=== PATIENT | male | born 1980 | race Asian ===

== ENCOUNTER 2016-11-10 04:53 | Emergency (ER) | payer BC ==
[~2016-11-10] VITALS: Ht 157.5 cm; Wt 106.6 kg
[2016-11-10 05:26] LABS: PLATELET COUNT 261 K/uL (142-355)
[2016-11-10 05:35] LABS: POTASSIUM 3.4 mmol/L (3.6-5.2); SODIUM 133 mmol/L (136-145)
[2016-11-10 06:33] VITALS: BP 140/84; TEMP 97.6
== END 2016-11-10 06:34 | disposition home or self-care (01) ==
LOC: ED 04:53
PROVIDERS: Emergency Medicine
DX: R07.89 Other chest pain (principal); K29.70 Gastritis, unspecified, without bleeding; B96.81 Helicobacter pylori [H. pylori] as the cause of diseases classified elsewhere
CPT/HCPCS: 80053; 82550; 82553; 84484; 85027; 86318; 93005; 99284

== ENCOUNTER 2017-12-21 18:34 | Outpatient (CLI) | payer BC | END 2017-12-21 18:48 | disposition short-term general hospital (02) | LOC: AMB 18:34 | DX: R55 Syncope and collapse (principal); R06.02 Shortness of breath | CPT/HCPCS: A0425; A0429 ==

== ENCOUNTER 2017-12-21 18:52 | Emergency (ER) | payer BC ==
[~2017-12-21] VITALS: Ht 190.5 cm; Wt 102.1 kg
[2017-12-21 19:57] LABS: PLATELET COUNT 508 K/uL (142-355)
[2017-12-21 20:01] LABS: POTASSIUM 3.7 mmol/L (3.6-5.2)
[2017-12-21 22:43] VITALS: BP 142/73; TEMP 98.8
== END 2017-12-21 22:45 | disposition home or self-care (01) ==
LOC: ED 18:52
PROVIDERS: Specialist
DX: R55 Syncope and collapse (principal); E86.9 Volume depletion, unspecified
CPT/HCPCS: 36415; 80053; 85027; 85379; 99283; Q9963

== ENCOUNTER 2019-03-21 20:49 | Emergency (ER) | payer OTHER ==
[~2019-03-21] VITALS: Ht 188 cm; Wt 96.2 kg
[2019-03-21 22:52] LABS: PLATELET COUNT 351 K/uL (142-355)
[2019-03-21 23:00] LABS: POTASSIUM 3.3 mmol/L (3.6-5.2)
[2019-03-21 23:30] VITALS: BP 131/85; TEMP 98.1
== END 2019-03-21 23:30 | disposition short-term general hospital (02) ==
LOC: ED 20:49
PROVIDERS: Internal Medicine
PROC: 0JQ00ZZ Repair Scalp Subcutaneous Tissue and Fascia, Open Approach (ICD-10-PCS; principal; 2019-03-21)
DX: J93.83 Other pneumothorax (principal); S01.81XA Laceration without foreign body of other part of head, initial encounter; V86.55XA Driver of 3- or 4- wheeled all-terrain vehicle (ATV) injured in nontraffic accident, initial encounter; Y93.89 Activity, other specified; Y92.89 Other specified places as the place of occurrence of the external cause
CPT/HCPCS: 36415; 80053; 85027; 96374; 96375; 96376; 99285; J1885; J2270; J2405; Q9963